=== PATIENT | female | born 1945 | race Caucasian/White ===

== ENCOUNTER 2018-07-21 14:39 | Emergency (ER) | payer MEDICARE, OTHER ==
[2018-07-21 16:30] LABS: ADD MAN DIFF? NO
[2018-07-21 16:34] LABS: BASOPHIL # 0.1 10^3/ul (0.0-0.1); EOSINOPHILS # 0.3 10^3/ul (0.0-0.5); EOSINOPHILS % 2.7 % (0.0-7.0); HEMOGLOBIN 14.1 g/dl (12.0-16.0); LYMPHOCYTES # 2.6 10^3/ul (0.8-2.9); LYMPHOCYTES % 25.5 % (15.0-51.0); MEAN CORPUSCULAR HEMOGLOBIN 31.8 pg (29.0-33.0); MEAN CORPUSCULAR HGB CONC 33.6 g/dl (32.0-37.0); MEAN CORPUSCULAR VOLUME 94.6 fl (82.0-101.0); MEAN PLATELET VOLUME 10.2 fl (7.4-10.4); MONOCYTE # 1.1 10^3/ul (0.3-0.9); MONOCYTES % 11.2 % (0.0-11.0); NEUTROPHIL # 5.9 10^3/ul (1.6-7.5); NEUTROPHILS % 58.8 % (39.0-77.0); NUCLEATED RED BLOOD CELLS% 0.2 /100WBC (0.0-0.0); PLATELET COUNT 366 10^3/UL (140-415); RED BLOOD COUNT 4.44 10^6/ul (4.20-5.40)
[2018-07-21 16:34] LABS: WHITE BLOOD COUNT 10.1 10^3/ul (4.8-10.8)
[2018-07-21] MEDS: ASPIRIN 81 MG TAB PO (16:39)
[2018-07-21] MEDS: LORAZEPAM 2 MG INJ IV (16:39)
[2018-07-21 16:51] LABS: ANION GAP 10 (5-13); BLOOD UREA NITROGEN 16 mg/dl (7-20); CALCIUM 9.6 mg/dl (8.4-10.2); CARBON DIOXIDE 26 mmol/L (21-31); CHLORIDE 107 mmol/L (97-110); CREATININE 0.62 mg/dl (0.44-1.00); Estimated GFR > 60 mL/min (>60); GLUCOSE 125 mg/dl (70-220); POTASSIUM 3.9 mmol/L (3.5-5.1); SODIUM 143 mmol/L (135-144)
[2018-07-21 17:02] LABS: TROPONIN-I < 0.012 ng/ml (0.000-0.120)
[2018-07-21 19:38] LABS: TROPONIN-I < 0.012 ng/ml (0.000-0.120)
== END 2018-07-21 19:56 | disposition home or self-care (01) ==
LOC: E/R 14:39
DX: R07.9 Chest pain, unspecified (principal); F43.21 Adjustment disorder with depressed mood; I10 Essential (primary) hypertension
CPT/HCPCS: 36415; 71045; 80048; 84484; 85025; 93005; 96374; 99285-25